=== PATIENT | female | born 1930 | race Caucasian/White ===

== ENCOUNTER 2017-03-04 19:08 | Inpatient (IN) | payer BC ==
[~2017-03-04] VITALS: Ht 157.5 cm; Wt 49.0 kg
[2017-03-04 19:36] VITALS: BP 108/54
[2017-03-04 20:26] LABS: BASOPHILS # (AUTO) 0.1 K/uL (0.00-0.22); HEMATOCRIT 40.7 % (36-48); HEMOGLOBIN 13.4 g/dL (12.0-16.0); LYMPHOCYTES # (AUTO) 0.2 K/uL (2.5-16.5); MEAN CORPUSCULAR HEMOGLOBIN 30 pg (27-31); MEAN CORPUSCULAR HGB CONC 33 g/dL (33-37); MEAN CORPUSCULAR VOLUME 91 fL (80-94); MONOCYTES # (AUTO) 0.1 K/uL (0.8-1.0); NEUTROPHILS # (AUTO) 2.6 K/uL (1.8-7.7); PLATELET COUNT (AUTO) 284 K/uL (140-450); RED BLOOD CELL COUNT(AUTO) 4.48 MIL/uL (4.20-5.40); RED CELL DISTRIBUTION WIDTH 12.9 % (11.6-13.7)
[2017-03-04 20:50] LABS: ALBUMIN 3.6 g/dL (3.4-5.0); ANION GAP 18.6 (8-16); ASPARTATE AMINOTRANSFERASE 32 U/L (15-37); CARBON DIOXIDE 24.4 mmol/L (21-32); CHLORIDE 87 mmol/L (98-107); CREATININE 2.3 mg/dL (0.6-1.3); SODIUM SERUM 127 mmol/L (136-145); TOTAL BILIRUBIN 0.7 mg/dL (0.0-1.0)
[2017-03-04 20:58] LABS: GLUCOSE 437 mg/dL (74-106)
[2017-03-04 20:59] LABS: UREA NITROGEN, BLOOD 75 mg/dL (7-18)
[2017-03-04 23:04] LABS: APPEARANCE,URINE CLEAR (CLEAR); BILIRUBIN,URINE NEGATIVE (NEGATIVE); BLOOD, URINE NEGATIVE (NEGATIVE); COLOR,URINE YELLOW (YELLOW); LEUKOCYTE ESTERASE ,URINE NEGATIVE (NEGATIVE); NITRITE, URINE NEGATIVE (NEGATIVE); PH,URINE 5.5 (5.0-9.0); UGLUCOSE 3+ (NEGATIVE)
[2017-03-04] MEDS ORDERED: HYDROmorphone 1 MG/ML AMP IVP ONE (23:25)
[2017-03-04 23:28] LABS: RBC,URINE 0-5 (RARE) /HPF (0-5); WBC,URINE 0-5 (RARE) /HPF (0-5)
[2017-03-04] MEDS ORDERED: PIOG45TA10 PO (23:28)
[2017-03-04] MEDS ORDERED: SIMV20TA1 PO (23:28)
[2017-03-04] MEDS ORDERED: PAX20 PO (23:28)
[2017-03-04] MEDS ORDERED: HYDR-133 PO (23:28)
[2017-03-04] MEDS ORDERED: LINA5TAB PO (23:28)
[2017-03-04] MEDS ORDERED: NACL 0.9% 1,000 ML IV SCH (23:29)
[2017-03-04] MEDS ORDERED: ONDANSETRON 4 MG/2 ML VIAL IM/IVP PRN (23:30)
[2017-03-04] MEDS ORDERED: ACETAMINOPHEN 325 MG TAB PO PRN (23:30)
[2017-03-04] MEDS ORDERED: HYDROcodone/APAP 7.5/325 MG 1 TAB PO PRN (23:30)
[2017-03-04] MEDS ORDERED: DOCUSATE SODIUM 100 MG GELCAP PO PRN (23:30)
[2017-03-04] MEDS ORDERED: ZOLPIDEM 5 MG TAB PO PRN (23:30)
[2017-03-04] MEDS ORDERED: NACL 0.9% 1,000 ML IV ONE (23:35)
[2017-03-04] MEDS ORDERED: LORazepam 2 MG/ML VIAL IVP ONE (23:55)
[2017-03-05] VITALS (21 sets, daily range): BP systolic 90–153; BP diastolic 37–69
[2017-03-05] MEDS ORDERED: PIPER/TAZO 2.25GM/D5W PREMIX 50 ML IV SCH
[2017-03-05] MEDS ORDERED: LORazepam 2 MG/ML VIAL IM/IVP SCH (00:15)
[2017-03-05 00:25] LABS: CHOL/HDL RATIO 1.9 (1-4.5); FREE T4 (FREE THYROXINE) 1.67 ng/dL (0.76-1.46); MAGNESIUM 2.1 mg/dL (1.8-2.4); PHOSPHORUS 5.6 mg/dL (2.5-4.9); THYROID STIMULATING HORMONE 3.48 uIU/mL (0.34-3.74)
[2017-03-05 00:29] LABS: BARBITURATE, URINE NEG. ng/ml (NEG <=200); BENZODIAZEPINE, URINE NEG. ng/mL (NEG <=200); CANNABINOID, URINE NEG. ng/mL (NEG <=50); COCAINE, URINE NEG. ng/mL (NEG <=300); OPIATE, URINE NEG. ng/mL (NEG <=2000); PHENCYCLIDINE SCREEN,URINE NEG. ng/mL (NEG <=25)
[2017-03-05] MEDS ORDERED: POTASSIUM CHLORIDE 40 MEQ, LIDOCAINE 1% 25 MG in NACL 0.9% 250 ML IV SCH (00:55)
[2017-03-05] MEDS ORDERED: NITROGLYCERIN 0.4 MG TAB SL PRN (01:00)
[2017-03-05] MEDS ORDERED: HYDROmorphone PFS 2 MG/ML SYR IVP SCH (01:00)
[2017-03-05] MEDS ORDERED: HEPARIN PER PHARMACY MC PRN (01:10)
[2017-03-05] MEDS ORDERED: hePARIN / DEXT 5% PREMIX 250 ML IV SCH ×2 (01:10→02:25)
[2017-03-05 01:14] LABS: PROTHROMBIN TIME 10.1 secs (10.8-13.4)
[2017-03-05] MEDS ORDERED: PIPERACILLIN/TAZOBACTAM 2.25 GM VIAL IV ONE ×2 (01:20→05:04)
[2017-03-05] MEDS ORDERED: fentaNYL 0.05 MG/ML VIAL ONE (01:25)
[2017-03-05] MEDS ORDERED: PROPOFOL 200 MG/20 ML VIAL IV ONE (01:30)
[2017-03-05] MEDS ORDERED: NEOSTIGMINE 1:1000 10 MG/10 ML VIAL IM ONE (01:30)
[2017-03-05] MEDS ORDERED: SUCCINYLCHOLINE CHLORIDE 200 MG/10 ML VIAL IV ONE (01:30)
[2017-03-05] MEDS ORDERED: SEVOFLURANE 250 ML BTL INH ONE (01:30)
[2017-03-05] MEDS ORDERED: ROCURONIUM 50 MG/5 ML VIAL IV ONE (01:30)
[2017-03-05] MEDS ORDERED: KCL 20 MEQ/WATER INJ PREMIX 200 ML IV ONE (03:00)
[2017-03-05] MEDS ORDERED: NACL 0.9% 1,000 ML IV SCH (03:25)
[2017-03-05 06:11] LABS: BASOPHILS # (AUTO) 0.1 K/uL (0.00-0.22); BASOPHILS % (AUTO) 2.3 % (0.0-2.0); EOSINOPHILS % (AUTO) 0.1 % (0.0-4.0); HEMATOCRIT 35.4 % (36-48); HEMOGLOBIN 11.8 g/dL (12.0-16.0); LYMPHOCYTES # (AUTO) 0.5 K/uL (2.5-16.5); LYMPHOCYTES % (AUTO) 13.7 % (20.5-51.1); MEAN CORPUSCULAR HEMOGLOBIN 30 pg (27-31); MEAN CORPUSCULAR HGB CONC 33 g/dL (33-37); MEAN CORPUSCULAR VOLUME 91 fL (80-94); MONOCYTES # (AUTO) 0.2 K/uL (0.8-1.0); MONOCYTES % (AUTO) 6.3 % (1.7-9.3); NEUTROPHILS % (AUTO) 77.6 % (42.2-75.2); PLATELET COUNT (AUTO) 230 K/uL (140-450); RED CELL DISTRIBUTION WIDTH 13.2 % (11.6-13.7); WHITE BLOOD COUNT (AUTO) 3.8 K/uL (4.8-10.8)
[2017-03-05] MEDS: PIPER/TAZO 2.25GM/D5W PREMIX 50 ML IV SCH ×3 (06:12→21:15)
[2017-03-05 06:20] LABS: ANION GAP 12.8 (8-16); CARBON DIOXIDE 26.9 mmol/L (21-32); CHLORIDE 97 mmol/L (98-107); CREATININE 2.7 mg/dL (0.6-1.3); GLUCOSE 277 mg/dL (74-106); POTASSIUM 3.7 mmol/L (3.5-5.1); SODIUM SERUM 133 mmol/L (136-145)
[2017-03-05 06:33] LABS: UREA NITROGEN, BLOOD 78 mg/dL (7-18)
[2017-03-05] MEDS: BLOOD GLUCOSE MONITORING 1 DEV DEV FS SCH ×4 (08:04→21:14)
[2017-03-05] MEDS: INSULIN LISPRO SLIDING SCALE 100 UNITS/ML VIAL SUBQ PRN ×2 (08:04→16:53)
[2017-03-05] MEDS ORDERED: SIMVASTATIN 20 MG TAB PO SCH (09:00)
[2017-03-05] MEDS: ATORVASTATIN 20 MG TAB PO SCH (09:00)
[2017-03-05] MEDS ORDERED: PARoxetine 20 MG TAB PO SCH (09:00)
[2017-03-05] MEDS ORDERED: PANTOPRAZOLE 40 MG INJ VIAL IVP SCH (09:00)
[2017-03-05] MEDS ORDERED: LISINOPRIL 5 MG TAB PO SCH (09:00)
[2017-03-05] MEDS ORDERED: TRIAMTERENE/HCTZ 37.5/25 MG 1 TAB PO SCH (09:00)
[2017-03-05] MEDS ORDERED: PIOGLITAZONE HCL 45 MG PO SCH (09:00)
[2017-03-05] MEDS ORDERED: METOPROLOL 25 MG TAB PO SCH (09:00)
[2017-03-05] MEDS: ASPIRIN 81 MG TAB.CHEW PO SCH (09:00)
[2017-03-05] MEDS ORDERED: POTASSIUM CHLORIDE 20% 40 MEQ/15 ML UDC PO SCH (09:18)
[2017-03-05] MEDS: DEXT 5% / NACL 0.9% 1,000 ML IV SCH ×2 (11:03→20:15)
[2017-03-05 13:06] LABS: PROTHROMBIN TIME 10.7 secs (10.8-13.4)
[2017-03-05 17:05] LABS: BASOPHILS # (AUTO) 0.2 K/uL (0.00-0.22); BASOPHILS % (AUTO) 2.5 % (0.0-2.0); EOSINOPHILS % (AUTO) 0.1 % (0.0-4.0); HEMATOCRIT 34.7 % (36-48); HEMOGLOBIN 11.6 g/dL (12.0-16.0); LYMPHOCYTES # (AUTO) 0.6 K/uL (2.5-16.5); LYMPHOCYTES % (AUTO) 6.9 % (20.5-51.1); MEAN CORPUSCULAR HEMOGLOBIN 30 pg (27-31); MEAN CORPUSCULAR HGB CONC 33 g/dL (33-37); MEAN CORPUSCULAR VOLUME 90 fL (80-94); MONOCYTES # (AUTO) 0.3 K/uL (0.8-1.0); MONOCYTES % (AUTO) 3.7 % (1.7-9.3); NEUTROPHILS # (AUTO) 7.5 K/uL (1.8-7.7); NEUTROPHILS % (AUTO) 86.8 % (42.2-75.2); PLATELET COUNT (AUTO) 215 K/uL (140-450); RED BLOOD CELL COUNT(AUTO) 3.84 MIL/uL (4.20-5.40); RED CELL DISTRIBUTION WIDTH 13.6 % (11.6-13.7); WHITE BLOOD COUNT (AUTO) 8.6 K/uL (4.8-10.8)
[2017-03-05 17:16] LABS: MAGNESIUM 1.9 mg/dL (1.8-2.4); PHOSPHORUS 2.4 mg/dL (2.5-4.9)
[2017-03-05 17:22] LABS: ANION GAP 16.7 (8-16); CARBON DIOXIDE 25.5 mmol/L (21-32); CHLORIDE 98 mmol/L (98-107); GLUCOSE 194 mg/dL (74-106); POTASSIUM 4.2 mmol/L (3.5-5.1); SODIUM SERUM 136 mmol/L (136-145)
[2017-03-05 17:23] LABS: UREA NITROGEN, BLOOD 82 mg/dL (7-18)
[2017-03-05] MEDS: INSULIN DETEMIR 100 UNITS/ML 10 ML VIAL SUBQ SCH (21:17)
[2017-03-05] MEDS: MORPHINE SULFATE 2 MG/ML SYR IVP PRN (23:03)
[2017-03-06] VITALS (8 sets, daily range): BP systolic 97–175; BP diastolic 42–57
[2017-03-06] MEDS: PIPER/TAZO 2.25GM/D5W PREMIX 50 ML IV SCH ×3 (05:02→20:49)
[2017-03-06 06:15] LABS: T4 (THYROXINE) 7.1 ug/dL (4.5-12.0)
[2017-03-06 07:40] LABS: MAGNESIUM 1.9 mg/dL (1.8-2.4)
[2017-03-06 07:41] LABS: ANION GAP 10.7 (8-16); CARBON DIOXIDE 27.8 mmol/L (21-32); CHLORIDE 104 mmol/L (98-107); CREATININE 2.9 mg/dL (0.6-1.3); GLUCOSE 91 mg/dL (74-106); POTASSIUM 3.5 mmol/L (3.5-5.1); SODIUM SERUM 139 mmol/L (136-145)
[2017-03-06 07:48] LABS: UREA NITROGEN, BLOOD 82 mg/dL (7-18)
[2017-03-06] MEDS: DEXT 5% / NACL 0.9% 1,000 ML IV SCH ×5 (07:52→20:53)
[2017-03-06] MEDS ORDERED: PROBIOTIC SCREEN 1 EA MISC MC PRN (07:55)
[2017-03-06 07:56] LABS: HEMATOCRIT 27.8 % (36-48); HEMOGLOBIN 9.1 g/dL (12.0-16.0); MEAN CORPUSCULAR HEMOGLOBIN 30 pg (27-31); MEAN CORPUSCULAR HGB CONC 33 g/dL (33-37); MEAN CORPUSCULAR VOLUME 90 fL (80-94); PLATELET COUNT (AUTO) 211 K/uL (140-450); RED BLOOD CELL COUNT(AUTO) 3.07 MIL/uL (4.20-5.40); RED CELL DISTRIBUTION WIDTH 13.3 % (11.6-13.7)
[2017-03-06] MEDS: BLOOD GLUCOSE MONITORING 1 DEV DEV FS SCH ×4 (08:02→20:53)
[2017-03-06] MEDS: PANTOPRAZOLE 40 MG INJ VIAL IVP SCH (08:03)
[2017-03-06] MEDS: ASPIRIN 81 MG TAB.CHEW PO SCH (08:03)
[2017-03-06] MEDS: ATORVASTATIN 20 MG TAB PO SCH (08:03)
[2017-03-06] MEDS: INSULIN DETEMIR 100 UNITS/ML 10 ML VIAL SUBQ SCH ×2 (08:03→20:52)
[2017-03-06] MEDS: DEXTROSE 50% 50 ML SYR IVP PRN (08:05)
[2017-03-06 09:50] LABS: LYMPHOCYTES % (MANUAL) 11 % (20-46); MONOCYTES % (MANUAL) 2 % (5-12)
[2017-03-06 18:59] LABS: ANION GAP 11.8 (8-16); CARBON DIOXIDE 26.2 mmol/L (21-32); CHLORIDE 107 mmol/L (98-107); CREATININE 2.5 mg/dL (0.6-1.3); GLUCOSE 139 mg/dL (74-106); SODIUM SERUM 142 mmol/L (136-145)
[2017-03-06 19:33] LABS: UREA NITROGEN, BLOOD 72 mg/dL (7-18)
[2017-03-06] MEDS: INSULIN LISPRO SLIDING SCALE 100 UNITS/ML VIAL SUBQ PRN (20:52)
[2017-03-07] VITALS: BP 144/61
[2017-03-07 04:00] VITALS: BP 166/51
[2017-03-07] MEDS: PIPER/TAZO 2.25GM/D5W PREMIX 50 ML IV SCH ×3 (04:23→21:44)
[2017-03-07] MEDS: DEXT 5% / NACL 0.9% 1,000 ML IV SCH ×3 (04:23→21:39)
[2017-03-07] MEDS: MORPHINE SULFATE 2 MG/ML SYR IVP PRN ×3 (04:36→15:08)
[2017-03-07 05:26] LABS: HEMATOCRIT 26.8 % (36-48); HEMOGLOBIN 8.7 g/dL (12.0-16.0); MEAN CORPUSCULAR HEMOGLOBIN 30 pg (27-31); MEAN CORPUSCULAR HGB CONC 33 g/dL (33-37); MEAN CORPUSCULAR VOLUME 91 fL (80-94); PLATELET COUNT (AUTO) 181 K/uL (140-450); RED BLOOD CELL COUNT(AUTO) 2.94 MIL/uL (4.20-5.40); WHITE BLOOD COUNT (AUTO) 12.2 K/uL (4.8-10.8)
[2017-03-07] MEDS ORDERED: LABETALOL 100 MG/20 ML VIAL IV PRN ×2 (05:50→06:20)
[2017-03-07 06:23] LABS: ANION GAP 12.4 (8-16); CHLORIDE 112 mmol/L (98-107); MAGNESIUM 1.9 mg/dL (1.8-2.4); PHOSPHORUS 2.6 mg/dL (2.5-4.9); SODIUM SERUM 147 mmol/L (136-145); UREA NITROGEN, BLOOD 59 mg/dL (7-18)
[2017-03-07] MEDS: BLOOD GLUCOSE MONITORING 1 DEV DEV FS SCH ×4 (06:32→21:42)
[2017-03-07] MEDS: DEXTROSE 50% 50 ML SYR IVP PRN ×2 (06:33→21:51)
[2017-03-07 06:36] LABS: GLUCOSE 34 mg/dL (74-106); POTASSIUM 2.4 mmol/L (3.5-5.1)
[2017-03-07 07:52] LABS: LYMPHOCYTES % (MANUAL) 9 % (20-46); MONOCYTES % (MANUAL) 4 % (5-12)
[2017-03-07 08:00] VITALS: BP 103/69
[2017-03-07] MEDS: ASPIRIN 81 MG TAB.CHEW PO SCH (09:00)
[2017-03-07] MEDS: ATORVASTATIN 20 MG TAB PO SCH (09:00)
[2017-03-07] MEDS: PANTOPRAZOLE 40 MG INJ VIAL IVP SCH (09:22)
[2017-03-07] MEDS: INSULIN DETEMIR 100 UNITS/ML 10 ML VIAL SUBQ SCH ×2 (09:23→21:00)
[2017-03-07] MEDS ORDERED: KCL 20 MEQ/WATER INJ PREMIX 200 ML IV ONE (10:45)
[2017-03-07] MEDS ORDERED: hydrALAZINE 20 MG/ML VIAL IVP PRN (11:25)
[2017-03-07] MEDS: INSULIN LISPRO SLIDING SCALE 100 UNITS/ML VIAL SUBQ PRN (11:36)
[2017-03-07 12:00] VITALS: BP 130/75
[2017-03-07 16:00] VITALS: BP 146/57
[2017-03-07] MEDS ORDERED: KCL 20 MEQ/WATER INJ PREMIX 200 ML IV SCH (18:55)
[2017-03-07 20:00] VITALS: BP 145/59
[2017-03-07] MEDS: metroNIDAZOLE 500 MG/NS PREMIX 100 ML IV SCH (21:44)
[2017-03-07] MEDS ORDERED: KCL 20 MEQ/WATER INJ PREMIX 100 ML IV SCH (22:10)
[2017-03-07 22:17] LABS: ANION GAP 12.1 (8-16); CARBON DIOXIDE 24.5 mmol/L (21-32); CHLORIDE 115 mmol/L (98-107); CREATININE 1.6 mg/dL (0.6-1.3); GLUCOSE 56 mg/dL (74-106); SODIUM SERUM 149 mmol/L (136-145); UREA NITROGEN, BLOOD 44 mg/dL (7-18)
[2017-03-07 22:23] LABS: POTASSIUM 2.6 mmol/L (3.5-5.1)
[2017-03-08 00:35] VITALS: BP 142/63
[2017-03-08] MEDS: BLOOD GLUCOSE MONITORING 1 DEV DEV FS SCH ×7 (00:35→23:52)
[2017-03-08] MEDS: DEXT 5% / NACL 0.9% 1,000 ML IV SCH ×3 (04:26→19:11)
[2017-03-08] MEDS: PIPER/TAZO 2.25GM/D5W PREMIX 50 ML IV SCH ×3 (04:33→20:55)
[2017-03-08] MEDS: metroNIDAZOLE 500 MG/NS PREMIX 100 ML IV SCH ×3 (04:34→20:55)
[2017-03-08 05:30] VITALS: BP 150/66
[2017-03-08 07:28] LABS: BASOPHILS % (AUTO) 0.5 % (0.0-2.0); EOSINOPHILS # (AUTO) 0.1 K/uL (0-0.4); EOSINOPHILS % (AUTO) 1.3 % (0.0-4.0); HEMATOCRIT 25.7 % (36-48); HEMOGLOBIN 8.4 g/dL (12.0-16.0); LYMPHOCYTES # (AUTO) 0.7 K/uL (2.5-16.5); LYMPHOCYTES % (AUTO) 7.5 % (20.5-51.1); MEAN CORPUSCULAR HEMOGLOBIN 30 pg (27-31); MEAN CORPUSCULAR HGB CONC 33 g/dL (33-37); MEAN CORPUSCULAR VOLUME 91 fL (80-94); MONOCYTES # (AUTO) 0.6 K/uL (0.8-1.0); NEUTROPHILS # (AUTO) 7.6 K/uL (1.8-7.7); NEUTROPHILS % (AUTO) 83.7 % (42.2-75.2); PLATELET COUNT (AUTO) 178 K/uL (140-450); RED BLOOD CELL COUNT(AUTO) 2.81 MIL/uL (4.20-5.40); RED CELL DISTRIBUTION WIDTH 13.9 % (11.6-13.7)
[2017-03-08 08:00] VITALS: BP 162/63
[2017-03-08] MEDS: KCL 20 MEQ/WATER INJ PREMIX 100 ML IV SCH ×2 (08:01→11:53)
[2017-03-08 08:09] LABS: MAGNESIUM 1.8 mg/dL (1.8-2.4); PHOSPHORUS 2.1 mg/dL (2.5-4.9)
[2017-03-08 08:11] LABS: POTASSIUM 3.1 mmol/L (3.5-5.1); SODIUM SERUM 143 mmol/L (136-145)
[2017-03-08 08:12] LABS: ANION GAP 6.3 (8-16); CARBON DIOXIDE 24.8 mmol/L (21-32); CHLORIDE 115 mmol/L (98-107); CREATININE 1.5 mg/dL (0.6-1.3); GLUCOSE 161 mg/dL (74-106); UREA NITROGEN, BLOOD 38 mg/dL (7-18)
[2017-03-08] MEDS: INSULIN LISPRO SLIDING SCALE 100 UNITS/ML VIAL SUBQ PRN ×4 (08:12→20:50)
[2017-03-08] MEDS ORDERED: POTASSIUM CHLORIDE 20% 40 MEQ/15 ML UDC PO SCH (09:18)
[2017-03-08] MEDS ORDERED: CALCIUM CARB/VIT-D 500 MG/200 IU 1 TAB PO SCH (09:20)
[2017-03-08] MEDS: CALCIUM CARB/VIT-D 500 MG/200 IU 1 TAB PO SCH (09:35)
[2017-03-08] MEDS: ASPIRIN 81 MG TAB.CHEW PO SCH (09:35)
[2017-03-08 09:36] LABS: ANION GAP 12.5 (8-16); CARBON DIOXIDE 22.8 mmol/L (21-32); CHLORIDE 116 mmol/L (98-107); CREATININE 1.5 mg/dL (0.6-1.3); GLUCOSE 161 mg/dL (74-106); POTASSIUM 3.3 mmol/L (3.5-5.1); SODIUM SERUM 148 mmol/L (136-145); UREA NITROGEN, BLOOD 39 mg/dL (7-18)
[2017-03-08] MEDS: ATORVASTATIN 20 MG TAB PO SCH (09:36)
[2017-03-08] MEDS: PANTOPRAZOLE 40 MG INJ VIAL IVP SCH (09:36)
[2017-03-08 12:00] VITALS: BP 157/58
[2017-03-08] MEDS: SODIUM PHOS / POTASSIUM PHOS 1 PKT PDR PO SCH ×3 (12:35→20:55)
[2017-03-08] MEDS: LORazepam 0.5 MG TAB PO PRN ×2 (14:26→23:44)
[2017-03-08 16:00] VITALS: BP 129/59
[2017-03-08] MEDS ORDERED: KCL 20 MEQ/WATER INJ PREMIX 200 ML IV SCH (18:00)
[2017-03-08 20:00] VITALS: BP 114/73
[2017-03-08] MEDS: INSULIN DETEMIR 100 UNITS/ML 10 ML VIAL SUBQ SCH (20:51)
[2017-03-09] VITALS: BP 128/72
[2017-03-09] MEDS: DEXT 5% / NACL 0.9% 1,000 ML IV SCH (01:15)
[2017-03-09 04:00] VITALS: BP 140/63
[2017-03-09] MEDS: BLOOD GLUCOSE MONITORING 1 DEV DEV FS SCH ×5 (04:00→20:56)
[2017-03-09] MEDS: DEXTROSE 50% 50 ML SYR IVP PRN (04:24)
[2017-03-09] MEDS ORDERED: Z-GUARD PASTE TP PRN (04:35)
[2017-03-09] MEDS: PIPER/TAZO 2.25GM/D5W PREMIX 50 ML IV SCH ×3 (05:05→22:40)
[2017-03-09] MEDS: metroNIDAZOLE 500 MG/NS PREMIX 100 ML IV SCH ×3 (05:05→20:49)
[2017-03-09 08:00] VITALS: BP 136/50
[2017-03-09 08:43] LABS: CARBON DIOXIDE 21.3 mmol/L (21-32); CHLORIDE 111 mmol/L (98-107); CREATININE 1.4 mg/dL (0.6-1.3); GLUCOSE 70 mg/dL (74-106); POTASSIUM 3.3 mmol/L (3.5-5.1); SODIUM SERUM 142 mmol/L (136-145); UREA NITROGEN, BLOOD 29 mg/dL (7-18)
[2017-03-09 09:01] LABS: HEMATOCRIT 25.3 % (36-48); HEMOGLOBIN 8.4 g/dL (12.0-16.0); MEAN CORPUSCULAR HEMOGLOBIN 30 pg (27-31); MEAN CORPUSCULAR HGB CONC 33 g/dL (33-37); MEAN CORPUSCULAR VOLUME 90 fL (80-94); PLATELET COUNT (AUTO) 180 K/uL (140-450); RED BLOOD CELL COUNT(AUTO) 2.82 MIL/uL (4.20-5.40); RED CELL DISTRIBUTION WIDTH 14.4 % (11.6-13.7)
[2017-03-09 09:19] LABS: MAGNESIUM 1.4 mg/dL (1.8-2.4); PHOSPHORUS 1.9 mg/dL (2.5-4.9)
[2017-03-09] MEDS: PANTOPRAZOLE 40 MG INJ VIAL IVP SCH (09:46)
[2017-03-09] MEDS: ASPIRIN 81 MG TAB.CHEW PO SCH (09:46)
[2017-03-09] MEDS: SODIUM PHOS / POTASSIUM PHOS 1 PKT PDR PO SCH ×4 (09:46→20:54)
[2017-03-09] MEDS: CALCIUM CARB/VIT-D 500 MG/200 IU 1 TAB PO SCH (09:46)
[2017-03-09] MEDS: POTASSIUM CHLORIDE 20% 40 MEQ/15 ML UDC PO SCH (09:46)
[2017-03-09 10:14] LABS: BASOPHILS % (MANUAL) 1 % (0-2); EOSINOPHILS % (MANUAL) 2 % (0-4); LYMPHOCYTES % (MANUAL) 11 % (20-46); MONOCYTES % (MANUAL) 8 % (5-12)
[2017-03-09] MEDS: ATORVASTATIN 20 MG TAB PO SCH (10:18)
[2017-03-09 12:00] VITALS: BP 144/55
[2017-03-09] MEDS: INSULIN LISPRO SLIDING SCALE 100 UNITS/ML VIAL SUBQ PRN ×3 (12:48→22:23)
[2017-03-09] MEDS: MORPHINE SULFATE 2 MG/ML SYR IVP PRN (13:59)
[2017-03-09 16:00] VITALS: BP 140/59
[2017-03-09] MEDS ORDERED: SODIUM PHOS / POTASSIUM PHOS 1 PKT PDR PO SCH (16:30)
[2017-03-09] MEDS ORDERED: MAG SULF 2000 MG/WATER PREMIX 50 ML IV SCH (17:00)
[2017-03-09 20:00] VITALS: BP 130/58
[2017-03-09] MEDS: INSULIN DETEMIR 100 UNITS/ML 10 ML VIAL SUBQ SCH (21:00)
[2017-03-09] MEDS: LORazepam 0.5 MG TAB PO PRN (22:40)
[2017-03-10] VITALS: BP 129/62
[2017-03-10] MEDS: BLOOD GLUCOSE MONITORING 1 DEV DEV FS SCH ×7 (00:03→23:45)
[2017-03-10] MEDS: INSULIN LISPRO SLIDING SCALE 100 UNITS/ML VIAL SUBQ PRN (00:04)
[2017-03-10 04:00] VITALS: BP 121/65
[2017-03-10] MEDS: PIPER/TAZO 2.25GM/D5W PREMIX 50 ML IV SCH ×3 (04:11→21:00)
[2017-03-10] MEDS: metroNIDAZOLE 500 MG/NS PREMIX 100 ML IV SCH ×3 (04:19→21:29)
[2017-03-10] MEDS: DEXTROSE 50% 50 ML SYR IVP PRN (05:02)
[2017-03-10 08:00] VITALS: BP 145/57
[2017-03-10] MEDS: SODIUM PHOS / POTASSIUM PHOS 1 PKT PDR PO SCH ×4 (08:00→21:34)
[2017-03-10] MEDS: ATORVASTATIN 20 MG TAB PO SCH (09:00)
[2017-03-10] MEDS: POTASSIUM CHLORIDE 20% 40 MEQ/15 ML UDC PO SCH (09:00)
[2017-03-10] MEDS: PANTOPRAZOLE 40 MG INJ VIAL IVP SCH (09:00)
[2017-03-10] MEDS: CALCIUM CARB/VIT-D 500 MG/200 IU 1 TAB PO SCH (09:00)
[2017-03-10] MEDS: ASPIRIN 81 MG TAB.CHEW PO SCH (09:00)
[2017-03-10 12:58] LABS: HEMATOCRIT 24.6 % (36-48); HEMOGLOBIN 8.1 g/dL (12.0-16.0); MEAN CORPUSCULAR HEMOGLOBIN 30 pg (27-31); MEAN CORPUSCULAR HGB CONC 33 g/dL (33-37); MEAN CORPUSCULAR VOLUME 90 fL (80-94); PLATELET COUNT (AUTO) 189 K/uL (140-450); RED BLOOD CELL COUNT(AUTO) 2.75 MIL/uL (4.20-5.40); RED CELL DISTRIBUTION WIDTH 14.3 % (11.6-13.7); WHITE BLOOD COUNT (AUTO) 6.9 K/uL (4.8-10.8)
[2017-03-10 13:06] LABS: CARBON DIOXIDE 21.7 mmol/L (21-32); CHLORIDE 109 mmol/L (98-107); CREATININE 1.2 mg/dL (0.6-1.3); GLUCOSE 82 mg/dL (74-106); POTASSIUM 3.7 mmol/L (3.5-5.1); SODIUM SERUM 137 mmol/L (136-145); UREA NITROGEN, BLOOD 21 mg/dL (7-18)
[2017-03-10 13:33] LABS: BASOPHILS % (MANUAL) 0 % (0-2); EOSINOPHILS % (MANUAL) 1 % (0-4); LYMPHOCYTES % (MANUAL) 15 % (20-46); MONOCYTES % (MANUAL) 7 % (5-12)
[2017-03-10 16:00] VITALS: BP 129/49
[2017-03-10] MEDS: INSULIN DETEMIR 100 UNITS/ML 10 ML VIAL SUBQ SCH (21:00)
[2017-03-11] MEDS: BLOOD GLUCOSE MONITORING 1 DEV DEV FS SCH ×5 (03:11→20:00)
[2017-03-11 04:00] VITALS: BP 144/64
[2017-03-11] MEDS: metroNIDAZOLE 500 MG/NS PREMIX 100 ML IV SCH ×3 (04:42→21:29)
[2017-03-11] MEDS: PIPER/TAZO 2.25GM/D5W PREMIX 50 ML IV SCH ×3 (05:01→20:46)
[2017-03-11 08:00] VITALS: BP 122/55
[2017-03-11 08:13] LABS: MEAN CORPUSCULAR HGB CONC 33 g/dL (33-37)
[2017-03-11 08:22] LABS: HEMATOCRIT 24.9 % (36-48); HEMOGLOBIN 8.3 g/dL (12.0-16.0); MEAN CORPUSCULAR HEMOGLOBIN 30 pg (27-31); MEAN CORPUSCULAR VOLUME 90 fL (80-94); PLATELET COUNT (AUTO) 223 K/uL (140-450); RED BLOOD CELL COUNT(AUTO) 2.77 MIL/uL (4.20-5.40); WHITE BLOOD COUNT (AUTO) 7.4 K/uL (4.8-10.8)
[2017-03-11 08:40] LABS: CARBON DIOXIDE 20.3 mmol/L (21-32); CHLORIDE 110 mmol/L (98-107); CREATININE 1.3 mg/dL (0.6-1.3); GLUCOSE 129 mg/dL (74-106); POTASSIUM 4.3 mmol/L (3.5-5.1); SODIUM SERUM 141 mmol/L (136-145); UREA NITROGEN, BLOOD 19 mg/dL (7-18)
[2017-03-11] MEDS: ATORVASTATIN 20 MG TAB PO SCH (09:10)
[2017-03-11] MEDS: ASPIRIN 81 MG TAB.CHEW PO SCH (09:10)
[2017-03-11] MEDS: PANTOPRAZOLE 40 MG INJ VIAL IVP SCH (09:11)
[2017-03-11] MEDS: CALCIUM CARB/VIT-D 500 MG/200 IU 1 TAB PO SCH (09:11)
[2017-03-11] MEDS: POTASSIUM CHLORIDE 20% 40 MEQ/15 ML UDC PO SCH (09:11)
[2017-03-11] MEDS: SODIUM PHOS / POTASSIUM PHOS 1 PKT PDR PO SCH ×4 (09:11→21:01)
[2017-03-11 09:15] LABS: EOSINOPHILS % (MANUAL) 2 % (0-4); LYMPHOCYTES % (MANUAL) 11 % (20-46); MONOCYTES % (MANUAL) 2 % (5-12)
[2017-03-11] MEDS: NACL 0.45% 1,000 ML IV SCH (10:59)
[2017-03-11 16:00] VITALS: BP 138/59
[2017-03-11 20:00] VITALS: BP 125/58
[2017-03-11] MEDS: INSULIN DETEMIR 100 UNITS/ML 10 ML VIAL SUBQ SCH (21:07)
[2017-03-11] MEDS: INSULIN LISPRO SLIDING SCALE 100 UNITS/ML VIAL SUBQ PRN (21:08)
[2017-03-11] MEDS: LORazepam 0.5 MG TAB PO PRN (21:16)
[2017-03-12] MEDS: NACL 0.45% 1,000 ML IV SCH (03:10)
[2017-03-12] MEDS ORDERED: LORazepam 0.5 MG TAB PO PRN (03:45)
[2017-03-12] MEDS ORDERED: HYDROcodone/APAP 7.5/325 MG 1 TAB PO PRN (03:45)
[2017-03-12] MEDS ORDERED: MORPHINE SULFATE 2 MG/ML SYR IVP PRN (03:45)
[2017-03-12] MEDS ORDERED: ZOLPIDEM 5 MG TAB PO PRN (03:45)
[2017-03-12] MEDS: BLOOD GLUCOSE MONITORING 1 DEV DEV FS SCH ×5 (04:00→16:49)
[2017-03-12] MEDS: PIPER/TAZO 2.25GM/D5W PREMIX 50 ML IV SCH ×2 (04:45→13:42)
[2017-03-12] MEDS: metroNIDAZOLE 500 MG/NS PREMIX 100 ML IV SCH ×2 (05:23→12:47)
[2017-03-12 08:00] VITALS: BP 135/54
[2017-03-12 08:33] LABS: BASOPHILS # (AUTO) 0.1 K/uL (0.00-0.22); BASOPHILS % (AUTO) 0.8 % (0.0-2.0); EOSINOPHILS # (AUTO) 0.2 K/uL (0-0.4); EOSINOPHILS % (AUTO) 2.2 % (0.0-4.0); HEMOGLOBIN 7.8 g/dL (12.0-16.0); LYMPHOCYTES # (AUTO) 0.6 K/uL (2.5-16.5); MEAN CORPUSCULAR HEMOGLOBIN 29 pg (27-31); MEAN CORPUSCULAR HGB CONC 33 g/dL (33-37); MEAN CORPUSCULAR VOLUME 90 fL (80-94); MONOCYTES # (AUTO) 0.3 K/uL (0.8-1.0); MONOCYTES % (AUTO) 3.6 % (1.7-9.3); NEUTROPHILS # (AUTO) 8.3 K/uL (1.8-7.7); NEUTROPHILS % (AUTO) 87.4 % (42.2-75.2); PLATELET COUNT (AUTO) 266 K/uL (140-450); RED BLOOD CELL COUNT(AUTO) 2.68 MIL/uL (4.20-5.40); RED CELL DISTRIBUTION WIDTH 14.3 % (11.6-13.7); WHITE BLOOD COUNT (AUTO) 9.5 K/uL (4.8-10.8)
[2017-03-12] MEDS: ATORVASTATIN 20 MG TAB PO SCH (08:34)
[2017-03-12] MEDS: PANTOPRAZOLE 40 MG INJ VIAL IVP SCH (08:34)
[2017-03-12] MEDS: ASPIRIN 81 MG TAB.CHEW PO SCH (08:34)
[2017-03-12] MEDS: CALCIUM CARB/VIT-D 500 MG/200 IU 1 TAB PO SCH (08:34)
[2017-03-12] MEDS: POTASSIUM CHLORIDE 20% 40 MEQ/15 ML UDC PO SCH (08:35)
[2017-03-12] MEDS: SODIUM PHOS / POTASSIUM PHOS 1 PKT PDR PO SCH ×3 (08:35→17:20)
[2017-03-12 08:58] LABS: ANION GAP 12.1 (8-16); CARBON DIOXIDE 19.7 mmol/L (21-32); CHLORIDE 112 mmol/L (98-107); CREATININE 1.1 mg/dL (0.6-1.3); GLUCOSE 100 mg/dL (74-106); POTASSIUM 3.8 mmol/L (3.5-5.1); SODIUM SERUM 140 mmol/L (136-145); UREA NITROGEN, BLOOD 16 mg/dL (7-18)
[2017-03-12 09:03] LABS: MAGNESIUM 1.4 mg/dL (1.8-2.4); PHOSPHORUS 3.3 mg/dL (2.5-4.9)
[2017-03-12] MEDS ORDERED: MAG SULF 2000 MG/WATER PREMIX 100 ML IV SCH ×2 (10:30→15:00)
[2017-03-12] MEDS ORDERED: LINAGLIPTIN 5 MG PO SCH (11:00)
[2017-03-12] MEDS ORDERED: (Linagliptin (Tradjenta) 5 MG) PO SCH (11:00)
[2017-03-12 16:00] VITALS: BP 144/58
[2017-03-12] MEDS ORDERED: SACC250C1 PO (18:08)
[2017-03-12] MEDS ORDERED: LEVEMIR SUBQ (18:08)
[2017-03-12] MEDS ORDERED: GLUC-805 FS (18:08)
[2017-03-12] MEDS ORDERED: PANT40EC PO (18:08)
[2017-03-12] MEDS ORDERED: METR500T1 PO (18:08)
[2017-03-12] MEDS ORDERED: AMOX-1000 PO (18:08)
== END 2017-03-12 20:00 | DRG 853 ==
LOC: MED 19:08 → MIC 23:31 → MTU 03-07 19:37
PROVIDERS: ADMIT Family Medicine Sports Medicine; ATTEND Family Medicine Sports Medicine
PROC: 0DB60ZX Excision of Stomach, Open Approach, Diagnostic (ICD-10-PCS; 2017-03-05)
PROC: 3E1M38Z Irrigation of Peritoneal Cavity using Irrigating Substance, Percutaneous Approach (ICD-10-PCS; 2017-03-05)
PROC: 02HV33Z Insertion of Infusion Device into Superior Vena Cava, Percutaneous Approach (ICD-10-PCS; 2017-03-05)
PROC: 0DU607Z Supplement Stomach with Autologous Tissue Substitute, Open Approach (ICD-10-PCS; principal; 2017-03-05 00:15)
PROC: 0D9670Z Drainage of Stomach with Drainage Device, Via Natural or Artificial Opening (ICD-10-PCS; 2017-03-06)
DX: A41.9 Sepsis, unspecified organism (principal); K65.0 Generalized (acute) peritonitis; I21.A1 Myocardial infarction type 2; E11.00 Type 2 diabetes mellitus with hyperosmolarity without nonketotic hyperglycemic-hyperosmolar coma (NKHHC); K25.5 Chronic or unspecified gastric ulcer with perforation; D68.59 Other primary thrombophilia; E11.22 Type 2 diabetes mellitus with diabetic chronic kidney disease; N17.0 Acute kidney failure with tubular necrosis; J90 Pleural effusion, not elsewhere classified; E11.65 Type 2 diabetes mellitus with hyperglycemia; F41.9 Anxiety disorder, unspecified; E87.6 Hypokalemia; D63.8 Anemia in other chronic diseases classified elsewhere; E11.9 Type 2 diabetes mellitus without complications; K66.8 Other specified disorders of peritoneum; Z96.659 Presence of unspecified artificial knee joint; F10.21 Alcohol dependence, in remission; E78.5 Hyperlipidemia, unspecified; N18.9 Chronic kidney disease, unspecified; Z87.891 Personal history of nicotine dependence
CPT/HCPCS: 36415; 51702; 71045; 74018; 74022; 80048; 80053; 80305; 81001; 82150; 82948; 83036; 83690; 83735; 83880; 84100; 84436; 84439; 84443; 84479; 84484; 85025; 85610; 85730; 86886; 86900; 86901; 87070; 87075; 87081; 87205; 88305; 88312; 88313; 93005; 93925; 93970; 96360; 97110; 97116; 97140; 97530; 99285; C9113; J0330; J0360; J1642; J1644; J1815; J2001; J2060; J2270; J2543; J2704; J2710; J3010; J3475; J3480; J3490; J7030; J7042; Q0092